=== PATIENT | female | born 1995 | race Caucasian/White ===

== ENCOUNTER → 2016-12-18 | Outpatient (CLI) | payer OTHER ==
[~2016-12-18] MED LIST: ETONMIS VAGRING; MRC50 PO; SLFEC500 PO
== END | disposition home or self-care (01) ==
LOC: C.LABSPEC 15:46
PROVIDERS: ATTEND Nurse Practitioner Family
DX: Z77.21 Contact with and (suspected) exposure to potentially hazardous body fluids (principal)

== ENCOUNTER → 2017-01-13 | Outpatient (CLI) | payer BC ==
[2017-01-13 17:43] LABS: HEMATOCRIT 41.7 % (37-47); MEAN CELL VOLUME 84.4 fL (80-100); MEAN CORPUSCULAR HEMOGLOBIN 28.7 pg (25-34); MEAN CORPUSCULAR HGB CONC 34.1 g/dl (32-36); MEAN PLATELET VOLUME 9.5 fL (7.4-10.4); PLATELET COUNT 315 K/uL (130-400); RED BLOOD COUNT 4.94 M/uL (4.2-5.4); WHITE BLOOD COUNT 8.91 K/uL (4.8-10.8)
[2017-01-13 18:04] LABS: ALT/SGPT 16 U/L (12-78); BLOOD UREA NITROGEN 11 mg/dl (7-18); BUN/CREATININE RATIO 13.5 (10-20); CARBON DIOXIDE 25 mmol/L (21-32); CHLORIDE 104 mmol/L (98-107); CREATININE 0.84 mg/dl (0.60-1.20); GLUCOSE 76 mg/dl (70-99); POTASSIUM 3.7 mmol/L (3.5-5.1); SODIUM 140 mmol/L (136-145)
[2017-01-13 18:10] LABS: BASO % 0.3 %; BASO ABS # 0.03 K/uL (0-0.2); COMPLETE YES; EOS % 5.2 %; IG% 0.3 %; LYMPH % 51.4 %; LYMPH ABS # 4.58 K/uL (1.2-3.4); MONO % 8.5 %; NEUT % 34.3 %
[2017-01-13 18:15] LABS: ALB/GLOB RATIO 0.8 (0.9-2); ALKALINE PHOSPHATASE 66 U/L (45-117); AST/SGOT 12 U/L (15-37)
[2017-01-13 19:11] LABS: LYME DISEASE AB IGG NEG (NEG); LYME DISEASE AB IGM EQUIVOCAL (NEG)
[2017-01-18 04:03] LABS: 18KDIGG BAND NONREACTIVE (NONREACTIVE); 23KDIGG BAND NONREACTIVE (NONREACTIVE); 23KDIGM BAND NONREACTIVE (NONREACTIVE); 28KDIGG BAND NONREACTIVE (NONREACTIVE); 30KDIGG BAND NONREACTIVE (NONREACTIVE); 39KDIGG BAND NONREACTIVE (NONREACTIVE); 39KDIGM BAND REACTIVE (NONREACTIVE); 41KDIGG BAND NONREACTIVE (NONREACTIVE); 41KDIGM BAND REACTIVE (NONREACTIVE); 45KDIGG BAND NONREACTIVE (NONREACTIVE); 58KDIGG BAND NONREACTIVE (NONREACTIVE); 66KDIGG BAND NONREACTIVE (NONREACTIVE); 93KDIGG BAND NONREACTIVE (NONREACTIVE)
== END | disposition home or self-care (01) ==
LOC: C.LAB1850 17:17
PROVIDERS: ATTEND Nurse Practitioner Adult Health
DX: R53.83 Other fatigue (principal)

== ENCOUNTER → 2017-02-27 | Outpatient (CLI) | payer OTHER | END | disposition home or self-care (01) | LOC: C.LABSPEC 10:46 | PROVIDERS: ATTEND Preventive Medicine Occupational Medicine | DX: Z77.21 Contact with and (suspected) exposure to potentially hazardous body fluids (principal) ==

== ENCOUNTER → 2017-04-25 | Outpatient (CLI) | payer BC ==
[2017-04-25 09:33] LABS: BASO % 0.3 %; BASO ABS # 0.02 K/uL (0-0.2); COMPLETE YES; HEMATOCRIT 40.6 % (37-47); IG% 0.2 %; LYMPH % 47.2 %; LYMPH ABS # 2.95 K/uL (1.2-3.4); MEAN CELL VOLUME 84.9 fL (80-100); MEAN CORPUSCULAR HEMOGLOBIN 28.7 pg (25-34); MEAN CORPUSCULAR HGB CONC 33.7 g/dl (32-36); MEAN PLATELET VOLUME 9.2 fL (7.4-10.4); MONO % 6.4 %; NEUT % 38.9 %; PLATELET COUNT 328 K/uL (130-400); RED BLOOD COUNT 4.78 M/uL (4.2-5.4); WHITE BLOOD COUNT 6.25 K/uL (4.8-10.8)
[2017-04-25 09:51] LABS: ALT/SGPT 28 U/L (12-78); BLOOD UREA NITROGEN 10 mg/dl (7-18); BUN/CREATININE RATIO 12.2 (10-20); C-REACTIVE PROTEIN 0.46 mg/dl (0-0.29); CARBON DIOXIDE 26 mmol/L (21-32); CHLORIDE 108 mmol/L (98-107); CHOLESTEROL 240 mg/dl (0-200); CREATININE 0.81 mg/dl (0.60-1.20); GLUCOSE 86 mg/dl (70-99); POTASSIUM 4.1 mmol/L (3.5-5.1); SODIUM 140 mmol/L (136-145); TRIGLYCERIDES 131 mg/dl (0-150); VERY LOW DENSITY LIPOPROT CALC 26 mg/dl
[2017-04-25 09:53] LABS: ALB/GLOB RATIO 0.8 (0.9-2); ALKALINE PHOSPHATASE 52 U/L (45-117); AST/SGOT 21 U/L (15-37); CHOLESTEROL/HDL RATIO 2.9; HDL CHOLESTEROL 82 mg/dl; LDL CHOLESTEROL CALCULATED 132 mg/dl
[2017-04-25 09:55] LABS: CALCIUM 9.1 mg/dl (8.5-10.1)
[2017-04-25 13:19] LABS: LYME DISEASE AB IGG NEG (NEG)
[2017-04-25 13:26] LABS: LYME DISEASE AB IGM EQUIVOCAL (NEG)
[2017-05-02 23:23] LABS: 18KDIGG BAND NONREACTIVE (NONREACTIVE); 23KDIGG BAND NONREACTIVE (NONREACTIVE); 23KDIGM BAND REACTIVE (NONREACTIVE); 28KDIGG BAND NONREACTIVE (NONREACTIVE); 30KDIGG BAND REACTIVE (NONREACTIVE); 39KDIGG BAND NONREACTIVE (NONREACTIVE); 39KDIGM BAND NONREACTIVE (NONREACTIVE); 41KDIGG BAND NONREACTIVE (NONREACTIVE); 41KDIGM BAND REACTIVE (NONREACTIVE); 45KDIGG BAND NONREACTIVE (NONREACTIVE); 58KDIGG BAND NONREACTIVE (NONREACTIVE); 66KDIGG BAND NONREACTIVE (NONREACTIVE); 93KDIGG BAND NONREACTIVE (NONREACTIVE)
== END | disposition home or self-care (01) ==
LOC: C.LAB1850 08:09
PROVIDERS: ATTEND Registered Nurse
DX: Z00.00 Encounter for general adult medical examination without abnormal findings (principal); R76.8 Other specified abnormal immunological findings in serum; K50.80 Crohn's disease of both small and large intestine without complications

== ENCOUNTER → 2017-06-11 | Outpatient (CLI) | payer BC ==
--- NOTE | 2017-06-11 15:37 | MAMMOGRAPHY REPORT ---
ULTRASOUND OF RIGHT BREAST: 06/11/2017 CLINICAL HISTORY: The patient reports a palpable lump in her right breast for approximately one week. Family history of breast cancer with her mother diagnosed at age 35. COMPARISON: No prior exams were available for comparison. TECHNIQUE: Real-time targeted ultrasound of the right breast was performed. FINDINGS: Real-time, high resolution targeted ultrasound was performed of the area of the palpable lump pointed out by the patient, in the right breast at 12:00, approximately 5 cm from the nipple. Sonographical ly normal tissue is seen in this region, without evidence of a mass or other suspicious sonographic a bnormality. IMPRESSION: ACR BI-RADS CATEGORY 1: NEGATIVE No suspicious sonographic abnormality at the site of the palpable right breast lump pointed out by th e patient. There is no sonographic evidence of malignancy. Recommend clinical follow-up; any decisi on to biopsy should be based on clinical grounds. The patient was verbally notified of the results. Chelsea Rosas M.D. ah/:06/11/2017 10:06:50 Cardiology Coordinator: Audra TUCKER(Janie)(M), [facility] letter sent: Normal 1/2 BI-RADS Code: ACR BI-RADS Category 1: Negative
== END | disposition home or self-care (01) ==
LOC: C.MAMM 09:45
PROVIDERS: ATTEND Family Medicine
DX: N63 Unspecified lump in breast (principal); Z80.3 Family history of malignant neoplasm of breast

== ENCOUNTER → 2017-07-15 | Outpatient (CLI) | payer BC ==
[2017-07-18 14:27] LABS: QUANTIF TB AG-NIL <0.00 IU/ML; QUANTIFERON NIL 0.08 IU/ML
== END | disposition home or self-care (01) ==
LOC: C.LAB 17:38
PROVIDERS: ATTEND Registered Nurse
DX: K50.80 Crohn's disease of both small and large intestine without complications (principal)

== ENCOUNTER → 2017-11-01 | Outpatient (CLI) | payer BC | END | disposition home or self-care (01) | LOC: C.LABSPEC 10:17 | PROVIDERS: ATTEND Internal Medicine | DX: R30.0 Dysuria (principal) ==

== ENCOUNTER → 2018-03-14 | Outpatient (CLI) | payer OTHER ==
[2018-03-14 10:54] LABS: ALBUMIN 3.9 gm/dl (3.4-5.0); ALT/SGPT 22 U/L (12-78); AST/SGOT 55 U/L (15-37); BLOOD UREA NITROGEN 12 mg/dl (7-18); CARBON DIOXIDE 27 mmol/L (21-32); CHOLESTEROL 161 mg/dl (0-200); CREATININE 0.89 mg/dl (0.60-1.20); GLUCOSE 83 mg/dl (70-99); POTASSIUM 4.1 mmol/L (3.5-5.1); SODIUM 137 mmol/L (136-145)
[2018-03-14 11:03] LABS: ALKALINE PHOSPHATASE 65 U/L (45-117); LDL CHOLESTEROL CALCULATED 71 mg/dl; TOTAL PROTEIN 7.8 gm/dl (6.4-8.2)
[2018-03-14 11:06] LABS: BASO % 0.3 %; BASO ABS # 0.03 K/uL (0-0.2); EOS % 1.3 %; EOS ABS # 0.15 K/uL (0-0.5); IG# 0.03 K/uL (0.00-0.02); LYMPH % 24.9 %; LYMPH ABS # 2.92 K/uL (1.2-3.4); MEAN CELL VOLUME 84.4 fL (80-100); MEAN CORPUSCULAR HEMOGLOBIN 29.5 pg (25-34); MEAN PLATELET VOLUME 9.3 fL (7.4-10.4); MONO % 7.1 %; MONO ABS # 0.83 K/uL (0.11-0.59); NEUT % 66.1 %; NEUT ABS # 7.75 K/uL (1.4-6.5); PLATELET COUNT 324 K/uL (130-400); RED CELL DISTRIBUTION WIDTH CV 14.5 % (11.5-14.5); RED CELL DISTRIBUTION WIDTH SD 44.8 fL (36.4-46.3); WHITE BLOOD COUNT 11.71 K/uL (4.8-10.8)
== END | disposition home or self-care (01) ==
LOC: C.LAB1850 09:38
PROVIDERS: ATTEND Registered Nurse
DX: K62.5 Hemorrhage of anus and rectum (principal); R53.83 Other fatigue; E78.5 Hyperlipidemia, unspecified

== ENCOUNTER → 2018-04-21 | Outpatient (CLI) | payer OTHER | END | disposition home or self-care (01) | LOC: C.LABSPEC 13:33 | PROVIDERS: ATTEND Obstetrics & Gynecology | DX: Z34.01 Encounter for supervision of normal first pregnancy, first trimester (principal) ==

== ENCOUNTER → 2018-06-26 | Outpatient (CLI) | payer OTHER, BC ==
[~2018-06-26] MED LIST changes: +CEPH500C2 PO; -ETONMIS VAGRING; -MRC50 PO; +ONDA4TAB10 SL; +PRENTAB26 PO; +RANI150T3 PO; +RMCI IV; +SACC250C3 PO; -SLFEC500 PO
[2018-06-26 11:01] LABS: BASO % 0.2 %; BASO ABS # 0.02 K/uL (0-0.2); EOS % 2.1 %; EOS ABS # 0.19 K/uL (0-0.5); HEMATOCRIT 34.9 % (37-47); HEMOGLOBIN 12.2 g/dL (12.0-16.0); IG# 0.05 K/uL (0.00-0.02); LYMPH % 34.2 %; LYMPH ABS # 3.05 K/uL (1.2-3.4); MEAN CELL VOLUME 85.5 fL (80-100); MEAN CORPUSCULAR HEMOGLOBIN 29.9 pg (25-34); MONO % 6.8 %; MONO ABS # 0.61 K/uL (0.11-0.59); NEUT % 56.1 %; NEUT ABS # 4.99 K/uL (1.4-6.5); PLATELET COUNT 325 K/uL (130-400); RED CELL DISTRIBUTION WIDTH CV 13.9 % (11.5-14.5); WHITE BLOOD COUNT 8.91 K/uL (4.8-10.8)
[2018-06-26 11:35] LABS: ALKALINE PHOSPHATASE 63 U/L (45-117); ALT/SGPT 16 U/L (12-78); AST/SGOT 21 U/L (15-37); BLOOD UREA NITROGEN 8 mg/dl (7-18); CALCIUM 8.6 mg/dl (8.5-10.1); CARBON DIOXIDE 24 mmol/L (21-32); CREATININE 0.58 mg/dl (0.60-1.20); GLUCOSE 71 mg/dl (70-99); PHOSPHORUS 2.3 mg/dl (2.5-4.9); POTASSIUM 3.3 mmol/L (3.5-5.1); SODIUM 137 mmol/L (136-145); TOTAL PROTEIN 7.3 gm/dl (6.4-8.2)
== END | disposition home or self-care (01) ==
LOC: C.LAB1850 09:50
PROVIDERS: ATTEND Obstetrics & Gynecology
DX: Z34.02 Encounter for supervision of normal first pregnancy, second trimester (principal); K52.9 Noninfective gastroenteritis and colitis, unspecified; E83.42 Hypomagnesemia; E83.39 Other disorders of phosphorus metabolism

== ENCOUNTER 2021-04-23 21:26 | Inpatient (IN) ==
[2021-04-23] MEDS ORDERED: LACTATED RINGER'S 1,000 ML IV PRN (22:01)
[2021-04-23] MEDS ORDERED: OXYTOCIN 30 UNITS/500 ML BAG IV PRN (22:01)
--- NOTE | 2021-04-23 22:11 | History & Physical Report ---
Date of Service April 23, 2021 Assessment & Plan (1) with 39 completed weeks gestation: (2) Normal labor: admit for labor. epidural on request. pit or arom as needed. fetus category one. Anticipate . History of Present Illness Chief Complaint: contractions Primary Care Provider: Elisabeth Alfredo MD Patient is a 26yowf with iup at39 4/7 weeks who presents to labor and delivery with contractions. no lof/vb. Did lose mucous plug over the day. +fm. uncomplicated. labs--O+/ab-/ri/rprnr/hepb-/hiv-/gtt x 2 nl/ gbs neg/ gc/ct neg. declined cf/sma/panorama/qs/afp. Allergies Allergy/AdvReac Type Severity Reaction Status Date / Time No Known Drug Allergies Allergy Verified 04/20/21 15:50 Home Medications Medication Instructions Recorded Confirmed Type prenat.vits,oma,snz-umxz-voykg 1 tab PO DAILY 09/15/20 04/23/21 History sertraline 50 mg tablet 50 mg PO QAM #90 tab 01/24/21 04/23/21 Rx adalimumab 40 mg/0.4 mL See Rx Instructions .ROUTE 03/06/21 04/23/21 Rx subcutaneous syringe kit .COMPLEX #2 ea Patient History Medical History (Updated 04/23/21 @ 22:12 by Vera Wang MD, FACOG) Anal fissure Crohn's colitis Depression with anxiety Hypokalemia Xerosis of skin Surgical History History of colonoscopy with polypectomy History of wisdom tooth extraction Status post LASIK surgery of both eyes Family History Grandmother (Paternal) Family history of diabetes mellitus Mother Breast cancer Grandmother (Maternal) Breast cancer Grandfather (Paternal) Prostate cancer Other No family history of adverse response to anesthesia Denies family history of Ovarian cancer Myocardial infarction Colorectal cancer Social History Smoking Status: Never smoker Second Hand Exposure: No; Hx Alcohol Use: Yes Alcohol type: beer, wine and hard liquor Hx Substance Use: No Preferred Language: Occitan Communication Ability: Effective Visual Impairment: No Limitations Hearing Ability: Normal Biological Photographer Required: Yes Beliefs That Will Affect Care: None marital status: marital status details: King (28) [phone] Current Living Situation: Spouse and Family Current Living Situation Comment: Lives with and daughter current occupational status: employed current occupation: [employer] Other Information That Helps Us Care for You: No Feels Safe at Home: Yes Safety Concerns: Feels Safe At This Time Dental Care, Regularly: Yes Physical Activity Frequency: 1-2 Times per Week Assistive Devices: None OB History G1--11/17, , 7# [employer] History noncontributory Physical Exam Constitutional: WD/WN, vitals as above Psychiatric: A+Ox3, euthymic affect Genitourinary: cx--/-2 toco--q 5min efm--125 with mod variability, accels to 160s, no decels Results & Data ([facility]) Vital Signs (Past 12 Hours) Vital Signs Temp Pulse Resp BP 04/23/21 22:03 37.0 C 04/23/21 21:33 78 18 134/81 04/23/21 21:29 75 152/93 H Code Status & VTE Plan VTE Prophylaxis Plan VTE Prophylaxis will be ordered: No Coding Level of Care Code None Diagnoses with 39 completed weeks gestation Z3A.39 Normal labor O80; Z37.9
[2021-04-23] MEDS ORDERED: LACTATED RINGER'S 1,000 ML IV SCH (22:15)
[2021-04-23 22:26] LABS: Hemoglobin 12.1 g/dL (12.0-16.0); Mean Corpuscular Hemoglobin 29.4 pg (25-34); Mean Corpuscular Hgb Conc 34.6 g/dL (32-36); Mean Corpuscular Volume 85.2 fL (80-100); Mean Platelet Volume 10.8 fL (7.4-10.4); Platelet Count 240 K/uL (130-400); RDW Coefficient of Variation 14.4 % (11.5-14.5); Red Blood Count 4.11 M/uL (4.2-5.4); White Blood Count 10.61 K/uL (4.8-10.8)
[2021-04-23] MEDS ORDERED: ePHEDrine sulfate 50 MG/ML AMP ONE (22:37)
[2021-04-23] MEDS ORDERED: fentaNYL 2MCG/ML ROPIVACAINE 1.25MG/ML 100 ML BAG EPI ONE (22:38)
[2021-04-23] MEDS ORDERED: fentaNYL citrate 100 MCG/2 ML VIAL ONE (22:38)
[2021-04-23] MEDS ORDERED: BUPIVACAINE 0.25% 30 ML VIAL ONE (22:38)
[2021-04-23] MEDS ORDERED: NALOXONE HCL 0.4 MG/1 ML VIAL/CARP IV PRN (22:43)
[2021-04-23] MEDS ORDERED: ePHEDrine sulfate 50 MG/ML AMP IV PRN (22:43)
[2021-04-23] MEDS ORDERED: NALOXONE HCL 1 MG in SODIUM CHLORIDE 0.9% 1000ML 1,000 ML IV PRN (22:43)
[2021-04-23] MEDS ORDERED: diphenhydrAMINE 50 MG/ML VIAL IV PRN (22:43)
[2021-04-23] MEDS ORDERED: fentaNYL 2MCG/ML ROPIVACAINE 1.25MG/ML 100 ML BAG EPI PRN (22:43)
[2021-04-23] MEDS ORDERED: ONDANSETRON INJ 2 MG/ML 2 ML VIAL IV PRN (22:43)
--- NOTE | 2021-04-23 22:43 | Anesthesiology Consultation ---
Date of Service April 23, 2021 Assessment & Plan ASA ASA2 Proposed Anesthesia Anesthesia Type: Labor Epidural Risk / Benefits Reviewed With: PT / POA / Parent / Guardian, Accepts Plan and Informed Consent Obtained History Height/Weight Height: 5 ft 3 in Weight: 88.451 kg Allergies Allergy/AdvReac Type Severity Reaction Status Date / Time No Known Drug Allergies Allergy Verified 04/20/21 15:50 Medications Home Medications Medication Instructions Recorded Confirmed Last Taken prenat.vits,oma,xex-hzfy-vzmbo 1 tab PO DAILY 09/15/20 04/23/21 04/23/21 08:00 sertraline 50 mg tablet 50 mg PO QAM #90 tab 01/24/21 04/23/21 04/23/21 08:00 adalimumab 40 mg/0.4 mL See Rx Instructions .ROUTE 03/06/21 04/23/21 04/15/21 08:00 subcutaneous syringe kit .COMPLEX #2 ea Active Medications Generic Name Dose Route Start Last Admin Trade Name Freq PRN Reason Stop Dose Admin Lactated Ringer's 1,000 mls @ 125 mls/hr 04/23/21 22:15 04/23/21 22:32 Lr IV 05/23/21 22:14 999 mls/hr .Q8H LETTY Administration Past Medical History Medical History (Updated 04/23/21 @ 22:12 by Vera Wang MD, FACOG) Anal fissure Crohn's colitis Depression with anxiety Hypokalemia Xerosis of skin Exercise / Class Metabolic Activity II 4-5 Yardwork/Stairs/Walk up hill Past Family History Family History Grandmother (Paternal) Family history of diabetes mellitus Mother Breast cancer Grandmother (Maternal) Breast cancer Grandfather (Paternal) Prostate cancer Other No family history of adverse response to anesthesia Denies family history of Ovarian cancer Myocardial infarction Colorectal cancer Past Surgical History Surgical History History of colonoscopy with polypectomy History of wisdom tooth extraction Status post LASIK surgery of both eyes Past Anesthesia History No Hx of Anesthesia Complications and No Family Hx of Anesthesia Complications History of PONV No Hx of PONV and No Hx of Motion Sickness Social History Smoking Status: Never smoker Hx Alcohol Use: Yes Alcohol type: beer, wine and hard liquor alcohol intake frequency: holidays/special occasions only Hx Substance Use: No substance use type: does not use Review of Systems denies fever/cough/ colds/ chest pain/ SOB/ GANGA denies GANGA Physical Exam Vital Signs Last Vital Signs Temp 37.0 C 04/23/21 22:03 Pulse 69 04/23/21 23:22 Resp 18 04/23/21 23:10 BP 107/62 04/23/21 23:14 Pulse Ox 100 04/23/21 23:22 ENMT Mouth: no TMJ abnormality and no dentition abnormality Thyromental Distance: > or= 3.5 Finger Breadths Mallampati Class: II Neck neck extension not limited Respiratory normal respiratory effort; no respiratory distress Auscultation: lungs clear to auscultation bilaterally Cardiovascular Rate/Rhythm: regular rate and regular rhythm Neurologic moves all extremities Psychiatric Orientation: alert and oriented x 3 Testing Laboratory Results 04/23/21 22:15
--- NOTE | 2021-04-24 01:15 | Labor Progress Brief Note ---
Date of Service April 24, 2021 Subjective comfortable Assessment & Plan (1) Normal labor: Admission and Anticipated Discharge Date Admission Date: April 23, 2021 pplan to start pushing soon. anticipate . fetus reassuring. Physical Exam Constitutional: WD/WN, vitals as above Psychiatric: A+Ox3, euthymic affect Genitourinary: cx--c/c/+1, bulgaing bag, arom clear toco--q2-3min efm--category one Results & Data ([facility]) Vital Signs (Past 12 Hours) Vital Signs Temp Pulse Resp BP Pulse Ox 04/24/21 01:12 69 100 04/24/21 01:07 68 100 04/24/21 01:02 65 100 04/24/21 01:00 73 114/70 04/24/21 00:57 65 100 04/24/21 00:52 72 100 04/24/21 00:47 71 100 04/24/21 00:45 68 99/65 L 04/24/21 00:42 77 97 04/24/21 00:37 72 100 04/24/21 00:32 65 100 04/24/21 00:31 18 04/24/21 00:27 60 100 04/24/21 00:24 84 94 04/24/21 00:22 65 99 04/24/21 00:17 68 97 04/24/21 00:14 82 103/67 04/24/21 00:12 67 100 04/24/21 00:07 72 99 04/24/21 00:02 76 99 04/24/21 00:00 83 18 99/66 L 04/23/21 23:57 69 97 04/23/21 23:52 60 99 04/23/21 23:47 62 100 04/23/21 23:45 63 18 102/61 04/23/21 23:42 69 98 04/23/21 23:41 62 93 04/23/21 23:37 68 100 04/23/21 23:32 60 100 04/23/21 23:30 71 18 91 04/23/21 23:29 62 104/64 04/23/21 23:27 66 100 04/23/21 23:25 18 04/23/21 23:22 69 100 04/23/21 23:20 18 04/23/21 23:17 69 99 04/23/21 23:15 18 04/23/21 23:14 75 107/62 04/23/21 23:12 74 119/75 100 04/23/21 23:10 69 18 120/75 04/23/21 23:08 68 119/72 04/23/21 23:07 69 128/74 100 04/23/21 23:05 84 18 92 04/23/21 23:02 80 100 04/23/21 23:00 20 04/23/21 22:57 180 H 100 04/23/21 22:03 37.0 C 04/23/21 21:33 78 18 134/81 04/23/21 21:29 75 152/93 H Coding Level of Care Code None Diagnoses Normal labor O80; Z37.9
[2021-04-24] MEDS ORDERED: oxyCODONE/ACETAMINOPHEN 5mg/325mg TAB PO PRN (01:50)
[2021-04-24] MEDS ORDERED: ACETAMINOPHEN 325 MG TAB PO PRN (01:50)
--- NOTE | 2021-04-24 01:52 | Delivery Summary ---
Vaginal Delivery Summary Date of Service April 24, 2021 Pre-operative Diagnosis: at 39 weeks active labor Post-operative Diagnosis: same Procedure: epidural arom second degree laceration and repair EBL: 350cc Anesthesia: epidural Procedure: The patient pushed for 2 contractions to deliver a viable female infant in doa position. The nose and mouth were bulb suctioned on the perineum and the rest of the infant was then delivered without difficulty. The baby was vigorous. The nose and mouth were again bulb suctioned and the infant was placed in the maternal abdomen for drying and attention. Cord was clamped and cut at one minute of life. Cord blood and segment obtained. Placenta delivered spontaneous, intact with a three vessel cord. Cervix/sulci/rectum were intact. A second degree perineal laceration was repaired in the normal standard fashion. Hemostasis obtained with dilute pitocin and fundal massage. Apgars were 8/9. Mother and baby doing well at the end of the delivery.
[2021-04-24] MEDS ORDERED: OXYTOCIN 30 UNITS/500 ML BAG IV PRN (03:33)
[2021-04-24] MEDS ORDERED: bisacodyL 10 MG SUPP PR PRN (03:33)
[2021-04-24] MEDS ORDERED: DIPHTHERIA/TETANUS/PERTUSSIS 0.5 ML SYR/VIAL IM ONE (03:33)
[2021-04-24] MEDS ORDERED: SUPERCREAM 0.870% 15 GM JAR EXT PRN (03:33)
[2021-04-24] MEDS ORDERED: HYDROCORTISONE ACETATE 25 MG SUPP PR PRN (03:33)
[2021-04-24] MEDS: BENZOCAINE 20% AER SPR 82.5 GM CAN EXT PRN ×2 (04:26→07:52)
[2021-04-24] MEDS: DOCUSATE SODIUM 100 MG CAP PO SCH ×2 (07:51→20:38)
[2021-04-24] MEDS: PRENATAL VITAMIN 1 TAB PO SCH (07:51)
[2021-04-24] MEDS: IBUPROFEN 600 MG TAB PO PRN ×3 (07:51→15:54)
--- NOTE | 2021-04-24 08:56 | Anesthesia Procedure Note ---
Date of Service April 24, 2021 Anesthesia Post Epidural Note Vital Signs Vital Signs: Temp Pulse Resp BP Pulse Ox 37.0 C 90 18 131/80 99 04/24/21 04:15 04/24/21 03:49 04/24/21 04:15 04/24/21 03:49 04/24/21 01:43 Notes Mental Status: alert / awake / arousable and participated in evaluation Nausea / Vomiting: adequately controlled Pain: adequately controlled Airway Patency, RR, SpO2: stable & adequate BP & HR: stable & adequate Hydration State: stable & adequate Neuraxial Anesthesia: was administered and sensory block is resolving Anesthetic Complications: no major complications apparent Epidural: Removed without complications and With tip intact
[2021-04-24] MEDS: SERTRALINE HCL 50 MG TABLET PO SCH (10:45)
[2021-04-25] MEDS: IBUPROFEN 600 MG TAB PO PRN ×2 (01:25→07:26)
--- NOTE | 2021-04-25 05:59 | Obstetrical Progress Note ---
Date of Service <Steve Durand MD - Last Filed: 04/25/21 07:10> April 25, 2021 Assessment & Plan <Steve Durand MD - Last Filed: 04/25/21 07:10> (1) state: 26 y/o s/p on 04/24 (0130AM), PPD1. O pos. RI. - meeting milestones - Hb stable, 11.4. - continue routine care - dispo home today. d/c instructions reviewed. 6 wk f/u (2) Crohn's colitis: - stable, no acute complaints - receives q2wk Humira as outpatient (3) Depression with anxiety: - stable - continue home sertraline 50mg qam for anxiety/depression. Subjective <Steve Durand MD - Last Filed: 04/25/21 07:10> Ambulation: ambulating normally Voiding: no voiding problems Passing Gas:: Yes Diet Tolerance:: regular diet Lochia:: Small Feeding Type:: breast feeding Current Pain Level(1-10): 0 No complaints other than still working on . Feels ready for home today. Review of Systems Denies fever, chills, sweats Denies shortness of breath, chest pain, palpitations. Denies breast pain. Denies dysuria. Denies headache or changes in vision. Denies nausea/vomiting. Denies numbness, tingling, weakness. Denies calf pain. Denies mood complaints. Physical Exam <Steve Durand MD - Last Filed: 04/25/21 07:10> General: Alert, oriented. No acute distress. Cardiac: Regular rate and rhythm, no murmurs/rubs/gallops. Respiratory: Clear to auscultation bilaterally, no wheezes/rales/rhonchi. No respiratory distress. Abdomen: , soft, nontender. Uterus: Uterine fundus firm, palpable 2cm below umbilicus. Lower Extremities: No lower extremity edema or swelling. No deep calf pain. Kalyani's negative bilaterally. Results & Data ([facility]) <Steve Durand MD - Last Filed: 04/25/21 07:10> Vital Signs (Past 12 Hours) Vital Signs Temp Pulse Resp BP Pulse Ox 04/24/21 23:20 36.8 C 72 17 109/69 97 04/24/21 19:50 36.8 C 84 20 122/78 Medications Administered <Paty Paz MD, FACOG - Last Filed: 04/25/21 07:17> Co-Signing Physician Notes Resident Physician Supervision Note: I interviewed and examined the patient. Discussed with Dr. Durand and agree with findings and plan as documented in the note. Any exceptions or clarifications are listed here: [None] Documented By: Paty Paz MD, FACOG
[2021-04-25 06:31] LABS: Hematocrit (blood only) 33.6 % (37-47); Hemoglobin 11.4 g/dL (12.0-16.0)
[2021-04-25] MEDS: PRENATAL VITAMIN 1 TAB PO SCH (07:25)
[2021-04-25] MEDS: DOCUSATE SODIUM 100 MG CAP PO SCH (07:26)
[2021-04-25] MEDS: SERTRALINE HCL 50 MG TABLET PO SCH (08:54)
[2021-04-25] MEDS ORDERED: bisacodyL 5 MG TABEC PO SCH (20:00)
== END 2021-04-25 10:10 | disposition home or self-care (01) | DRG 806 ==
LOC: OPB 21:26 → 4S1 21:27 → 4S2 04-24 04:28